=== PATIENT | female | born 1985 | race Caucasian/White ===

== ENCOUNTER 2022-03-20 16:58 | Emergency (ER) | payer OTHER ==
[2022-03-20 18:23] VITALS: TEMP 98.1
--- NOTE | 2022-03-20 19:17 | ED ---
Abdominal Pain HPI - General Source: patient, family, RN notes reviewed Mode of arrival: ambulatory Limitations: no limitations <Fabiana Husain - Last Filed: 03/20/22 19:16> - General Source: patient, RN notes reviewed <Robert Asher - Last Filed: 03/21/22 02:02> - General Chief Complaint: Abdominal Pain Stated Complaint: stomach pain Time Seen by Provider: 03/20/22 19:16 - History of Present Illness Initial Comments: Patient is a 37-year-old female presenting with chief complaint of abdominal pain. Patient states that pain came on suddenly at about 345 this afternoon. It is sharp in nature and located in the right upper quadrant. Patient has had attacks like this before. She admits to nausea with no vomiting. She states that she ate around 3:00 this afternoon. The pain radiates to her back. No fever or chills. No dysuria, hematuria, urgency, frequency. (Fabiana Husain) Patient is a 37-year-old female with past medical history remarkable for chronic abdominal pain, Factor V leiden who presents emergency Department complaining of acute on chronic abdominal pain. Was evaluated in the triage and workup was started. States it started this afternoon suddenly. It has been more frequent lately. Has been dealing with it for multiple weeks. Has been taking aspirin daily for her factor V bleeding for the last 8 years. He is due to follow-up with her doctor on Saturday, however states she does not believe she can make it to her PCP appointment. Has not seen a GI specialist. Has a history of back appendectomy but still has her gallbladder. Was seen recently at another ER and workup was unremarkable. Was discharged home on Pepcid. Presents today as the symptoms returned. Describes a sharp, achy sensation that somewhat radiates to her back is mostly present in the right upper quadrant and epigastric region. Seems to occur after eating. Has no other acute complaints at this time. D enies chest pain, shortness breath, fevers, chills, urinary complaints, . I evaluated the patient when she was placed in a room.Patient states that the pain in her abdomen did radiate up into her chest at one point today. Currently is asymptomatic at this time. No cardiac history. (Robert Asher) - Related Data Previous Rx's Medication Instructions Recorded Ondansetron Odt [Zofran Odt] 4 mg PO Q8HR PRN 3 Days #9 tab 03/21/22 Pantoprazole Sodium [Protonix] 20 mg PO DAILY 14 Days #14 tab 03/21/22 Allergies Allergy/AdvReac Type Severity Reaction Status Date / Time No Known Allergies Allergy Verified 03/20/22 18:23 Review of Systems ROS Other: All systems not noted in ROS Statement are negative. <Fabiana Husain - Last Filed: 03/20/22 19:16> ROS Other: All systems not noted in ROS Statement are negative. <Robert Asher - Last Filed: 03/21/22 02:02> ROS Statement: Those systems with pertinent positive or pertinent negative responses have been documented in the HPI. Review of Systems: CONST: Denies fever EYES: Denies blurry vision ENT: Denies nasal congestion C/V: Denies Chest pain RESP: Denies shortness of breath GI: Endorses abdominal pain : Denies dysuria SKIN: Denies rash. MSK: Denies joint pain. NEURO: Denies headache (Robert Asher) Past Medical History Additional Past Medical History / Comment(s): Factor 5 gene, Past Surgical History: Adenoidectomy, Appendectomy, Tonsillectomy Additional Past Surgical History / Comment(s): [place] teeth removed Past Psychological History: Anxiety, Depression Smoking Status: Former smoker Past Alcohol Use History: None Reported Past Drug Use History: Marijuana <Fabiana Husain - Last Filed: 03/20/22 19:16> General Exam Limitations: no limitations <Fabiana Husain - Last Filed: 03/20/22 19:16> <Robert Asher - Last Filed: 03/21/22 02:02> - General Exam Comments Initial Comments: General: Appears in no acute distress. HEAD: Normal with no signs of head trauma. EYES: PERRLA, EOMI, conjunctiva normal, no discharge. ENT: Hearing grossly intact, normal oropharynx. RESPIRATORY: Clear breath sounds bilaterally. No wheezes, rales, or rhonchi. C/V: Regular rate and rhythm. S1 and S2 auscultated, no edema, peripheral pulses 2+ and intact throughout ABD: Abdomen soft, nondistended. Tender to palpation in the right upper quadrant region very minimally at this time. No guarding. No peritoneal signs. No rebound tenderness. EXT: Normal range of motion, no obvious deformity SKIN: No rashes or lesions observed on exposed skin. NEURO: Alert and oriented 4. (Robert Asher) Course Vital Signs 03/20/22 18:19 Temperature 98.1 F Pulse Rate 79 Respiratory 18 Rate Blood Pressure 119/79 O2 Sat by Pulse 96 Oximetry Medical Decision Making - Lab Data Result diagrams: 03/20/22 21:00 03/20/22 21:00 - EKG Data -: EKG Interpreted by Me <Robert Asher - Last Filed: 03/21/22 02:02> - Medical Decision Making Based on the patient's presentation and physical exam, there was concern for intra-abdominal process for current symptoms. Workup was already starting in triage which consisted of abdominal laboratory studies, EKG. right upper quadrant ultrasound was also performed. I obtain a urinalysis as well as a quantitative beta hCG. Vital signs within except for limits. She'll be given Toradol as well as IV fluids for pain control. She'll be given antibiotics. She was in agreement this plan. Right upper quadrant ultrasound has already returned, and was remarkable for no reviewed gallbladder. No dilated ducts. CBD is normal size. Laboratory studies are remarkable for a slight leukocytosis of 13 which is likely reactive. Patient is a slightly elevated AST and ALT. Alk phos is also slightly elevated. I discussed with the patient obtaining CT imaging which she was in agreement with. There was a long delay in obtaining CT abdomen and pelvis secondary to large volumes of the emergency department and higher acuity cases requiring the CT scanner. When it finally returned, gallbladder was not seen and there is no other obvious etiology for her right upper quadrant pain. After the patient. I believe it is safer to be discharged home. She was in agreement this plan. We discussed that she may be having some gallbladder pathology versus possible ulcers. She takes an aspirin every day and I recommended she take it with food or drink. She'll be discharged home with prescription for Protonix as well as Zofran. Patient was in agreement this plan. We discussed she likely requires an EGD in the future. She follows up with her PCP on Saturday. I will provide the patient with a prescription for ODT Zofran, Protonix. I instructed the patient to follow up with their PCP in the next 1-3 days. I explained that the patient should return to the emergency department if they experience any worsening symptoms. Strict return precautions were discussed with the patient. The patient expressed understanding of these instructions. I answered all questions that the patient had. The patient was discharged home in good condition with their prescriptions and follow up information. Was pt. sent in by a medical professional or institution ([facility] Ewing, PRISON LIBRARIAN, urgent care, hospital, or long-term...) When possible be specific @ -No Did you speak to anyone other than the patient for history (EMS, parent, family, police, friend...)? What history was obtained from this source @ -No Did you review nursing and triage notes (agree or disagree)? Why? @ -I reviewed and agree with nursing and triage notes Were old charts reviewed (outside hosp., previous admission, EMS record, old EKG, old radiological studies, urgent care reports/EKG's, long-term records)? Report findings @ -No old charts were reviewed Differential Diagnosis (chest pain, altered mental status, abdominal pain women, abdominal pain men, vaginal bleeding, weakness, fever, dyspnea, syncope, headache, dizziness, GI bleed, back pain, seizure, CVA, palpatations, mental health)? @ -Differential Abdominal Pain Women: Appendicitis, Cholecystitis, diverticulosis, ischemic bowel, pancreatitis, hepatitis, UTI, gastroenteritis, AAA, incarcerated hernia, bowel obstruction, constipation, inflammatory bowel, hepatitis, peptic ulcer disease, splenic infarction, perforated viscus, vulvitis, ovarian torsion, PID, kidney stone, placenta abruption, this is not meant to be an all-inclusive list EKG interpreted by me (3pts min.). @ -As above X-rays interpreted by me (1pt min.). @ -None done CT interpreted by me (1pt min.). @ -No obvious cause of right upper quadrant pain on CT abdomen and pelvis with contrast. No evidence of cholecystitis. U/S interpreted by me (1pt. min.). @ -No obvious gallbladder seen on ultrasound of the abdomen. What testing was considered but not performed or refused? (CT, X-rays, U/S, labs)? Why? @ -None What meds were considered but not given or refused? Why? @ -None Did you discuss the management of the patient with other professionals (professionals i.e. , MARISSA, PRISON LIBRARIAN, lab, RT, psych nurse, social worker masters, platen press operator, teacher, community chest officer, outpatient case manager)? Give summary @ -No Was smoking cessation discussed for >3mins.? @ -No Was critical care preformed (if so, how long)? @ -No Were there social determinants of health that impacted care today? How? (Homelessness, low income, unemployed, alcoholism, drug addiction, transportation, low edu. Level, literacy, decrease access to med. care, usp, rehab)? @ -No Was there de-escalation of care discussed even if they declined (Discuss DNR or withdrawal of care, Hospice)? DNR status @ -No What co-morbidities impacted this encounter? (DM, HTN, Smoking, COPD, CAD, Cancer, CVA, ARF, Chemo, Hep., AIDS, mental health diagnosis, sleep apnea, morbid obesity)? @ -None Was patient admitted / discharged? Hospital course, mention meds given and route, prescriptions, significant lab abnormalities, going to OR and other pertinent info. @ -Discharged home. See above for ED course. Undiagnosed new problem with uncertain prognosis? @ -No Drug Therapy requiring intensive monitoring for toxicity (Heparin, Nitro, In sulin, Cardizem)? @ -No Were any procedures done? @ -No Diagnosis/symptom? @ -Abdominal pain of unknown etiology Acute, or Chronic, or Acute on Chronic? @ -Acute on chronic Uncomplicated (without systemic symptoms) or Complicated (systemic symptoms)? @ -Uncomplicated Side effects of treatment? @ -No Exacerbation, Progression, or Severe Exacerbation? @ -No Poses a threat to life or bodily function? How? (Chest pain, [place], [place], pneumonia, PE, COPD, DKA, ARF, appy, cholecystitis, CVA, Diverticulitis, Homicidal, Suicidal, threat to staff... and all critical care pts) @ -No (Robert Asher) - Lab Data Lab Results 03/20/22 03/20/22 03/20/22 Range/Units 21:00 21:00 21:00 WBC 13.0 H (3.8-10.6) k/uL RBC 5.46 H (3.80-5.40) m/uL Hgb 13.8 (11.4-16.0) gm/dL Hct 43.5 (34.0-46.0) % MCV 79.7 L (80.0-100.0) fL MCH 25.3 (25.0-35.0) pg MCHC 31.8 (31.0-37.0) g/dL RDW 13.8 (11.5-15.5) % Plt Count 309 (150-450) k/uL MPV 8.6 Neutrophils % 65 % Lymphocytes % 25 % Monocytes % 4 % Eosinophils % 5 % Basophils % 0 % Neutrophils # 8.4 H (1.3-7.7) k/uL Lymphocytes # 3.2 (1.0-4.8) k/uL Monocytes # 0.5 (0-1.0) k/uL Eosinophils # 0.6 (0-0.7) k/uL Basophils # 0.1 (0-0.2) k/uL PT 10.1 (9.0-12.0) sec INR 0.9 (<1.2) APTT 22.3 (22.0-30.0) sec Sodium 139 (137-145) mmol/L Potassium 4.6 (3.5-5.1) mmol/L Chloride 107 (98-107) mmol/L Carbon Dioxide 24 (22-30) mmol/L Anion Gap 8 mmol/L BUN 18 H (7-17) mg/dL Creatinine 0.64 (0.52-1.04) mg/dL Est GFR (CKD-EPI)AfAm >90 (>60 ml/min/1.73 sqM) Est GFR (CKD-EPI)NonAf >90 (>60 ml/min/1.73 sqM) Glucose 90 (74-99) mg/dL Plasma Lactic Acid Reyes (0.7-2.0) mmol/L Calcium 9.7 (8.4-10.2) mg/dL Total Bilirubin 0.7 (0.2-1.3) mg/dL AST 161 H (14-36) U/L ALT 108 H (4-34) U/L Alkaline Phosphatase 156 H (38-126) U/L Troponin I (0.000-0.034) ng/mL Total Protein 7.1 (6.3-8.2) g/dL Albumin 4.4 (3.5-5.0) g/dL Amylase 51 (30-110) U/L Lipase 100 (23-300) U/L Urine Color Urine Appearance (Clear) Urine pH (5.0-8.0) Ur Specific [place] (1.001-1.035) Urine Protein (Negative) Urine Glucose (UA) (Negative) Urine Ketones (Negative) Urine Blood (Negative) Urine Nitrite (Negative) Urine Bilirubin (Negative) Urine Urobilinogen (<2.0) mg/dL Ur Leukocyte Esterase (Negative) Urine HCG, Qual (Not Detectd) 03/20/22 03/20/22 03/20/22 Range/Units 21:00 21:00 22:50 WBC (3.8-10.6) k/uL RBC (3.80-5.40) m/uL Hgb (11.4-16.0) gm/dL Hct (34.0-46.0) % MCV (80.0-100.0) fL MCH (25.0-35.0) pg MCHC (31.0-37.0) g/dL RDW (11.5-15.5) % Plt Count (150-450) k/uL MPV Neutrophils % % Lymphocytes % % Monocytes % % Eosinophils % % Basophils % % Neutrophils # (1.3-7.7) k/uL Lymphocytes # (1.0-4.8) k/uL Monocytes # (0-1.0) k/uL Eosinophils # (0-0.7) k/uL Basophils # (0-0.2) k/uL PT (9.0-12.0) sec INR (<1.2) APTT (22.0-30.0) sec Sodium (137-145) mmol/L Potassium (3.5-5.1) mmol/L Chloride (98-107) mmol/L Carbon Dioxide (22-30) mmol/L Anion Gap mmol/L BUN (7-17) mg/dL Creatinine (0.52-1.04) mg/dL Est GFR (CKD-EPI)AfAm (>60 ml/min/1.73 sqM) Est GFR (CKD-EPI)NonAf (>60 ml/min/1.73 sqM) Glucose (74-99) mg/dL Plasma Lactic Acid Reyes 0.7 (0.7-2.0) mmol/L Calcium (8.4-10.2) mg/dL Total Bilirubin (0.2-1.3) mg/dL AST (14-36) U/L ALT (4-34) U/L Alkaline Phosphatase (38-126) U/L Troponin I <0.012 (0.000-0.034) ng/mL Total Protein (6.3-8.2) g/dL Albumin (3.5-5.0) g/dL Amylase (30-110) U/L Lipase (23-300) U/L Urine Color Yellow Urine Appearance Clear (Clear) Urine pH 6.0 (5.0-8.0) Ur Specific [place] 1.028 (1.001-1.035) Urine Protein Trace H (Negative) Urine Glucose (UA) Negative (Negative) Urine Ketones Negative (Negative) Urine Blood Negative (Negative) Urine Nitrite Negative (Negative) Urine Bilirubin Negative (Negative) Urine Urobilinogen 2.0 (<2.0) mg/dL Ur Leukocyte Esterase Negative (Negative) Urine HCG, Qual (Not Detectd) 03/20/22 Range/Units 22:50 WBC (3.8-10.6) k/uL RBC (3.80-5.40) m/uL Hgb (11.4-16.0) gm/dL Hct (34.0-46.0) % MCV (80.0-100.0) fL MCH (25.0-35.0) pg MCHC (31.0-37.0) g/dL RDW (11.5-15.5) % Plt Count (150-450) k/uL MPV Neutrophils % % Lymphocytes % % Monocytes % % Eosinophils % % Basophils % % Neutrophils # (1.3-7.7) k/uL Lymphocytes # (1.0-4.8) k/uL Monocytes # (0-1.0) k/uL Eosinophils # (0-0.7) k/uL Basophils # (0-0.2) k/uL PT (9.0-12.0) sec INR (<1.2) APTT (22.0-30.0) sec Sodium (137-145) mmol/L Potassium (3.5-5.1) mmol/L Chloride (98-107) mmol/L Carbon Dioxide (22-30) mmol/L Anion Gap mmol/L BUN (7-17) mg/dL Creatinine (0.52-1.04) mg/dL Est GFR (CKD-EPI)AfAm (>60 ml/min/1.73 sqM) Est GFR (CKD-EPI)NonAf (>60 ml/min/1.73 sqM) Glucose (74-99) mg/dL Plasma Lactic Acid Reyes (0.7-2.0) mmol/L Calcium (8.4-10.2) mg/dL Total Bilirubin (0.2-1.3) mg/dL AST (14-36) U/L ALT (4-34) U/L Alkaline Phosphatase (38-126) U/L Troponin I (0.000-0.034) ng/mL Total Protein (6.3-8.2) g/dL Albumin (3.5-5.0) g/dL Amylase (30-110) U/L Lipase (23-300) U/L Urine Color Urine Appearance (Clear) Urine pH (5.0-8.0) Ur Specific [place] (1.001-1.035) Urine Protein (Negative) Urine Glucose (UA) (Negative) Urine Ketones (Negative) Urine Blood (Negative) Urine Nitrite (Negative) Urine Bilirubin (Negative) Urine Urobilinogen (<2.0) mg/dL Ur Leukocyte Esterase (Negative) Urine HCG, Qual Not Detected (Not Detectd) - EKG Data EKG Comments: 12-lead Electrocardiogram Interpretation Note EKG was reviewed and interpreted by myself. 12-lead ECG performed at 2046 is interpreted by me as revealing normal sinus rhythm at a rate of 73 beats per minute. [place] is normal. ME interval is 149 ms, QRS duration is 99 ms, QTc is 411 ms.. There were no ST or T wave abnormalities to suggest myocardial ischemia or injury. R wave progression across the precordium was satisfactory. By my interpretation this EKG is non-diagnostic for acute ischemia. No prior EKG for comparison. (Robert Asher) Disposition <Fabiana Husain - Last Filed: 03/20/22 19:16> Is patient prescribed a controlled substance at d/c from ED?: No Time of Disposition: 01:20 <Robert Asher - Last Filed: 03/21/22 02:02> Clinical Impression: Abdominal pain of unknown etiology Disposition: HOME SELF-CARE Condition: Good Instructions (If sedation given, give patient instructions): Abdominal Pain (ED) Prescriptions: Pantoprazole Sodium [Protonix] 20 mg PO DAILY 14 Days #14 tab Ondansetron Odt [Zofran Odt] 4 mg PO Q8HR PRN 3 Days #9 tab PRN Reason: Nausea Referrals: None,Stated [Primary Care Provider] - 1-2 days
--- NOTE | 2022-03-20 19:52 | US ---
EXAMINATION TYPE: US abdomen limited DATE OF EXAM: 03/20/2022 COMPARISON: NONE CLINICAL HISTORY: RUQ pain. RUQ pain x months. Pt states she had a CT at another facility and her "GB wasn't seen because it was contracted." TECHNIQUE: Multiple sonographic images of the right upper quadrant are obtained. FINDINGS: EXAM MEASUREMENTS: Liver Length: 19.2 cm Gallbladder Wall: Not seen CBD: 0.44 cm Right Kidney: 12.1 x 4.6 x 5.0 cm WIND ENERGY TECHNICIAN NOTES: Pancreas: wnl Liver: wnl Gallbladder: Not visualized Evidence for sonographic Li's sign: No CBD: wnl Right Kidney: wnl GB not visualized in exam, pt states last time she ate was 4 hours ago. IMPRESSION: Gallbladder not seen. No focal liver defect. No dilated ducts. No evidence of pancreatic mass.
[2022-03-20 21:27] LABS: Basophils # (A) 0.1 k/uL (0-0.2); Basophils % (A) 0 %; Eosinophils # (A) 0.6 k/uL (0-0.7); Eosinophils % (A) 5 %; HCT 43.5 % (34.0-46.0); HGB 13.8 gm/dL (11.4-16.0); Lymphocytes # (A) 3.2 k/uL (1.0-4.8); Lymphocytes % (A) 25 %; MCH 25.3 pg (25.0-35.0); MCHC 31.8 g/dL (31.0-37.0); MCV 79.7 fL (80.0-100.0); Mean Platelet Volume 8.6; Monocytes # (A) 0.5 k/uL (0-1.0); Monocytes % (A) 4 %; Neutrophils # (A) 8.4 k/uL (1.3-7.7); Neutrophils % (A) 65 %; Platelet Count 309 k/uL (150-450); RBC 5.46 m/uL (3.80-5.40); RDW 13.8 % (11.5-15.5)
[2022-03-20 21:48] LABS: INR 0.9 (<1.2); Partial Thromboplastin Time 22.3 sec (22.0-30.0); Prothrombin Time 10.1 sec (9.0-12.0)
[2022-03-20 21:50] LABS: ALT 108 U/L (4-34); AST 161 U/L (14-36); African American GFR (CKD) >90 (>60 ml/min/1.73 sqM); Albumin 4.4 g/dL (3.5-5.0); Alkaline Phosphatase 156 U/L (38-126); Amylase 51 U/L (30-110); Anion Gap 8 mmol/L; Blood Urea Nitrogen 18 mg/dL (7-17); Calcium 9.7 mg/dL (8.4-10.2); Carbon Dioxide 24 mmol/L (22-30); Chloride 107 mmol/L (98-107); Glucose 90 mg/dL (74-99); Lipase 100 U/L (23-300); Non-African American GFR(CKD) >90 (>60 ml/min/1.73 sqM); Sodium 139 mmol/L (137-145); Total Bilirubin 0.7 mg/dL (0.2-1.3); Total Protein 7.1 g/dL (6.3-8.2)
[2022-03-20 21:55] LABS: Potassium 4.6 mmol/L (3.5-5.1)
[2022-03-20] MEDS ORDERED: ONDANSETRON 4 MG/2 ML VIAL IVP STA (22:25)
[2022-03-20] MEDS ORDERED: SODIUM CHLORIDE 0.9% 1,000 ML IV STA (22:25)
[2022-03-20] MEDS ORDERED: KETOROLAC 15 MG/ML 1 ML VIAL IVP STA (22:25)
[2022-03-20 23:12] LABS: Appearance,Urine Clear (Clear); Bilirubin,Urine Negative (Negative); Blood,Urine Negative (Negative); Color,Urine Yellow; Glucose,Urine (UA) Negative (Negative); Ketones,Urine Negative (Negative); Leukocyte Esterase,Urine Negative (Negative); Nitrite,Urine Negative (Negative); Protein,Urine Trace (Negative); Specific Gravity,Urine 1.028 (1.001-1.035)
--- NOTE | 2022-03-21 01:03 | CT ---
EXAMINATION TYPE: CT abdomen pelvis w con DATE OF EXAM: 03/21/2022 COMPARISON: None HISTORY: RUQ abd pain. CT DLP: 1428.2 mGycm Automated exposure control for dose reduction was used. CONTRAST: Performed with IV Contrast, patient injected with 100cc mL of Isovue 300. Images obtained from the diaphragm to the floor of the pelvis with the IV contrast. Lung bases are clear. No pleural effusion. Heart size is normal. No pericardial effusion. Liver splee n and stomach pancreas appear intact. The bile duct are not dilated. Gallbladder not seen. There is no adrenal mass. Kidneys show satisfactory contrast opacification. No hydronephrosis. Ureter s are not dilated. No retroperitoneal adenopathy. No inguinal hernia. Bladder distends smoothly. No p elvic mass. There is small fat-containing umbilical hernia. No mesenteric edema. No ascites or free air. No sign of bowel obstruction. There is small amount of low-density free fluid in the pelvis. There is no mesenteric edema. No ascites or free air. No sign of a bowel obstruction. Delayed images show normal renal excretion. Appendix not clearly seen. No sign of thickened appendix. The lumbar vertebrae have normal alignment. Posterior elements are intact. No compression fracture. T he bony pelvis is intact. The hip joints are intact. Uterus is retroverted. IMPRESSION: There is small amount of low density fluid in the pelvis that could be physiologic. Appendix not seen . No sign of thickened appendix. I do not see a cause for right upper quadrant pain.
[2022-03-21] MEDS ORDERED: KETOROLAC 15 MG/ML 1 ML VIAL IVP STA (01:36)
[2022-03-21 02:21] VITALS: BP 129/68; PULSE 74; RESP 15
== END 2022-03-21 02:23 | disposition home or self-care (01) ==
LOC: EC 16:58
DX: R10.11 Right upper quadrant pain (principal); F41.9 Anxiety disorder, unspecified; F32.A Depression, unspecified; Z87.891 Personal history of nicotine dependence; F12.90 Cannabis use, unspecified, uncomplicated
CPT/HCPCS: 36415; 93005; 80053; 82150; 83605; 83690; 84484; 85025; 85610; 85730; 81003; 81025; 76705; 99284; 96374; 96375; 96361; 96376; J2405; J1885; 74177

== ENCOUNTER → 2022-03-30 | Outpatient (CLI) | payer OTHER ==
[2022-03-30 18:51] LABS: Basophils # (A) 0.06 X 10*3/uL (0.00-0.10); Basophils % (A) 0.7 %; Eosinophils # (A) 0.98 X 10*3/uL (0.04-0.35); Eosinophils % (A) 11.2 %; HCT 43.5 % (37.2-46.3); HGB 13.1 g/dL (12.0-15.0); Immature Grans, Automated 0.2 %; Lymphocytes # (A) 3.27 X 10*3/uL (0.90-5.00); Lymphocytes % (A) 37.2 %; MCH 25.2 pg (27.0-32.0); MCHC 30.1 g/dL (32.0-37.0); MCV 83.7 fL (80.0-97.0); Mean Platelet Volume 12.1 fL (9.5-12.2); Monocytes # (A) 0.48 X 10*3/uL (0.20-1.00); Monocytes % (A) 5.5 %; NRBC Per 100 WBC 0 /100 WBCS (0.0-0.0); Neutrophils # (A) 3.97 X 10*3/uL (1.80-7.70); Neutrophils % (A) 45.2 %; Platelet Count 344 X 10*3/uL (140-440); RDW 14.3 % (11.5-14.5); WBC 8.78 X 10*3/uL (4.50-10.00)
[2022-03-30 19:03] LABS: ALT 35 U/L (8-44); AST 22 U/L (13-35); African American GFR (CKD) 130.1 (60.0-200.0); Albumin 4.4 g/dL (3.8-4.9); Alkaline Phosphatase 116 U/L (41-126); BUN/Creat Ratio 18.57 Ratio (12.00-20.00); Bilirubin, Conjugated <0.20 mg/dL (0.20-0.40); Calcium 9.5 mg/dL (8.7-10.3); Carbon Dioxide 24.5 mmol/L (20.0-27.5); Chloride 105 mmol/L (96-109); Chol/HDL Ratio 4.73 Ratio; Glucose 85 mg/dL (70-110); LDL Cholesterol,Calculated 103.6 mg/dL (0.0-131.0); Non-African American GFR(CKD) 112.3 (60.0-200.0); Potassium 4.4 mmol/L (3.5-5.5); Sodium 141 mmol/L (135-145); Total Protein 6.4 g/dL (6.2-8.2); VLDL Calculation 14.68 mg/dL (5.00-40.00)
== END | disposition home or self-care (01) ==
LOC: LABWHC1 12:04
PROVIDERS: ATTEND Internal Medicine
DX: R10.811 Right upper quadrant abdominal tenderness (principal)
CPT/HCPCS: 36415; 80053; 80061; 82248; 84443; 85025

== ENCOUNTER → 2022-06-29 | Day surgery (SDC) | payer OTHER ==
[2022-06-26 17:30] VITALS: BMI 34.5
[~2022-06-29] MED LIST: ACETAMINOPHEN TAB 500 MG TAB PO STA; BUPIVACAIN-EPI 0.25%-1:200,000 30 ML VIAL SQ ONE; DEXAMETHASONE SOD PHOSPHATE 4 MG/ML 1 ML VIAL IV ONE; GABAPENTIN 300 MG CAP PO STA; GLYCOPYRROLATE 0.2 MG/ML 2 ML VIAL ONE; HEPARIN SODIUM,PORCINE/PF 5,000 UNIT/0.5 ML SYRINGE SQ PRN; HYDROcodone/APAP 7.5-325MG 1 EACH TAB ONE; HYDROcodone/APAP 7.5-325MG 1 EACH TAB PO ONE; INDOCYANINE GREEN 25 MG VIAL IV STA; LACTATED RINGERS 1,000 ML IV ONE; LACTATED RINGERS 1,000 ML IV SCH; LIDOCAINE 2% INJ 20 MG/ML (2 ML VIAL) ONE; MELOXICAM 7.5 MG TAB PO SCH; MIDAZOLAM 2 MG/2 ML VIAL IV PRN; MIDAZOLAM 2 MG/2 ML VIAL ONE; NEOSTIGMINE 1 MG/ML 10 ML VIAL ONE; ONDANSETRON 4 MG/2 ML VIAL IVP ONE; PROPOFOL 10 MG/ML 20 ML VIAL IV ONE; ROCURONIUM 10 MG/ML (5 ML VIAL) IV ONE; SCOPOLAMINE 1 MG/72 HR PATCH TRANSDERM ONE; SUCCINYLCHOLINE CHLORIDE 200 MG/10 ML VIAL IV ONE; fentaNYL (PF) 50 MCG/ML 2 ML AMP ONE
--- NOTE | 2022-06-29 07:45 | P.GSHP ---
History of Present Illness H&P Date: 06/29/22 CHIEF COMPLAINT: Cholecystitis HISTORY OF PRESENT ILLNESS: The patient is a 37-year-old female who presents with history of epigastric including right upper quadrant abdominal pain. She underwent diagnostic studies for her gallbladder. Separately her clinical picture was consistent with cholecystitis. Now she presents for surgical intervention. PAST MEDICAL HISTORY: Please see list PAST SURGICAL HISTORY: Please see list MEDICATIONS: Please see list ALLERGIES: Please see list SOCIAL HISTORY: Please see list FAMILY HISTORY: Please see list REVIEW OF ORGAN SYSTEMS: CONSTITUTIONAL: No reports of fevers or chills. HEENT: Denies any troubles with the vision or hearing. ENDOCRINE: No reports of hypothyroidism. No diabetes. RESPIRATORY: No recent pneumonias. CARDIOVASCULAR: Denies chest pain or palpitations GI: No blood in stools or constipation. MUSCULOSKELETAL: Has occasional joint pain including back pain. NEURO: No seizure disorders or headaches. No recent stroke. PSYCH: No depression or suicidal ideation. GENITOURINARY: No active blood in urine. No urinary hesitancy. HEMATOLOGIC: No personal or family history of DVTs or pulmonary emboli. SKIN: No skin cancer. PHYSICAL EXAM: VITAL SIGNS: Afebrile vital signs stable GENERAL: Well-developed pleasant in no acute distress. HEENT: No scleral icterus. Extraocular movements grossly intact. Moist buccal mucosa. NECK: Supple without lymphadenopathy. CHEST: Unlabored respirations. Equal bilateral excursions. CARDIOVASCULAR: Regular rate regular rhythm rhythm. Distal 2+ pulses. ABDOMEN: Soft, nondistended. Tender along the epigastrium and right upper quadrant. MUSCULOSKELETAL: No clubbing, cyanosis, or edema. NEURO: Cranial nerves II to XII within normal limits. No focal or lateralizing signs. PSYCH: Alert and oriented to person, place and time. SKIN: Well-perfused good skin turgor. ASSESSMENT: 1. Epigastric and right upper quadrant abdominal pain 2. Chronic cholecystitis 3. Symptomatic gallstones. PLAN: 1. Will need a robotic cholecystectomy possible open. Benefits and risks were described. 2. Heparin for DVT prophylaxis 5000 units. 3. Antibiotic prophylaxis. 4. CBC and CMP on day of procedure 5. Non-narcotic pre and post op pain management reviewed. 6. Indocyanine green for biliary imaging. Past Medical History Past Medical History: Blood Disorder Additional Past Medical History / Comment(s): FACTOR V LEIDEN History of Any Multi-Drug Resistant Organisms: None Reported Past Surgical History: Adenoidectomy, Appendectomy, Tonsillectomy Additional Past Surgical History / Comment(s): [place] teeth removed Past Anesthesia/Blood Transfusion Reactions: No Reported Reaction Past Psychological History: Anxiety, Depression Smoking Status: Former smoker, Vaper Past Alcohol Use History: None Reported Past Drug Use History: Marijuana - Past Family History Mother Family Medical History: No Reported History Medications and Allergies Home Medications Medication Instructions Recorded Confirmed Type No Known Home Medications 06/26/22 06/26/22 History Allergies Allergy/AdvReac Type Severity Reaction Status Date / Time No Known Allergies Allergy Verified 06/26/22 17:25
[2022-06-29 10:26] VITALS: TEMP 97.2
[2022-06-29 10:44] LABS: HCT 40.8 % (34.0-46.0); HGB 13.2 gm/dL (11.4-16.0); MCH 26.5 pg (25.0-35.0); MCHC 32.3 g/dL (31.0-37.0); MCV 81.9 fL (80.0-100.0); Mean Platelet Volume 8.5; Platelet Count 281 k/uL (150-450); RBC 4.98 m/uL (3.80-5.40); RDW 13.7 % (11.5-15.5); WBC 7.5 k/uL (3.8-10.6)
[2022-06-29 10:56] LABS: ALT 20 U/L (4-34); AST 26 U/L (14-36); African American GFR (CKD) >90 (>60 ml/min/1.73 sqM); Albumin 3.7 g/dL (3.5-5.0); Alkaline Phosphatase 79 U/L (38-126); Anion Gap 10 mmol/L; Blood Urea Nitrogen 15 mg/dL (7-17); Calcium 8.9 mg/dL (8.4-10.2); Carbon Dioxide 21 mmol/L (22-30); Chloride 107 mmol/L (98-107); Glucose 84 mg/dL (74-99); Non-African American GFR(CKD) >90 (>60 ml/min/1.73 sqM); Potassium 4.3 mmol/L (3.5-5.1); Sodium 138 mmol/L (137-145); Total Bilirubin 0.6 mg/dL (0.2-1.3); Total Protein 6.1 g/dL (6.3-8.2)
[2022-06-29] MEDS: HYDROmorphone 0.5 MG/0.5 ML SYRINGE IVP PRN ×2 (14:34→14:42)
[2022-06-29 14:49] VITALS: RESP 16
--- NOTE | 2022-06-29 15:27 | P.OP ---
Date of Procedure: 06/29/22 Description of Procedure: SURGEON: HAYLIE MILLER MD PREOPERATIVE DIAGNOSES: 1. Right upper quadrant abdominal pain 2. Abnormal computed tomography scan, HIDA scan, ultrasound for cholecystitis POSTOPERATIVE DIAGNOSES: 1. Gallbladder agenesis 2. Peritoneal adhesions 3. Fatty liver disease OPERATION: 1. Robotic-assisted da Dimple Xi laparoscopic with lysis of adhesions ESTIMATED BLOOD LOSS: 5 mL. SPECIMENS REMOVED: None. COMPLICATIONS: None. OPERATIVE FINDINGS: 1. Moderate adhesions along hepatic fossa lysed demonstrating gallbladder agenesis INDICATIONS: The patient is a 37-year-old female who presents with right upper quadrant abdominal pain and abnormal studies for cholecystitis. Surgical intervention with diagnostic laparoscopy, lysis of adhesions and possible left inguinal hernia repair were described. Informed consent was obtained. Robotic assisted laparoscopic approach was described. Benefits and risks of the procedure including but not limited to bleeding, infection was described. Informed consent was obtained. DESCRIPTION OF PROCEDURE: Patient was brought to the operating room, placed in supine position. After general induction, the abdomen had been prepped and draped in standard sterile fashion. The robotic da Dimple XI system was primed. After a timeout protocol was performed, the patient had been prepped and draped in standard sterile fashion. The robot was docked along the left lateral abdomen. Please note prior to dockin g of the robot; however, a 5 mm 0 degrees laparoscopic trocar entry was performed along the left upper quadrant. Next, three 8 mm robotic ports were placed along the left lateral abdominal wall abdomen. Trochars were placed at least 10 to 15 cm away from the target anatomy. Instruments including graspers and scissors with cautery were interchanged by the ophthalmic assistant. I had sat at the console. Greater omental adhesion to the lower abdominal wall at the pelvis was identified and sharply divided using Endo scissors with cautery. Hemostasis was checked. The sigmoid colon was highly redundant. No large or small bowel obstruction was identified. The robot was undocked. All pneumoperitoneum and instruments were evacuated from the abdominal cavity. The incisions were reapproximated using 4-0 Monocryl in an interrupted subcuticular fashion. Please note along the trocar sites, local anesthetic was placed as a field block prior to insertion of all instruments. Exofin was applied to the skin. At the end of the procedure needle, sponge, and instrument count had been verified correct by the assembler surgical garment. The patient was transferred to postanesthesia care unit in stable condition. Plan - Discharge Summary Discharge Rx Participant: No New Discharge Prescriptions: New Ibuprofen [Motrin] 600 mg PO Q8HR PRN #30 tab PRN Reason: Pain Simethicone 40 mg/0.6 ml Drops [Mylicon Drops] 40 mg PO Q6HR PRN #30 ml PRN Reason: Abdominal Distention Acetaminophen Tab [Tylenol Tab] 1,000 mg PO Q6HR PRN #30 tablet PRN Reason: Pain Discharge Medication List Acetaminophen Tab [Tylenol Tab] 1,000 mg PO Q6HR PRN #30 tablet 06/29/22 [Rx] Ibuprofen [Motrin] 600 mg PO Q8HR PRN #30 tab 06/29/22 [Rx] Simethicone 40 mg/0.6 ml Drops [Mylicon Drops] 40 mg PO Q6HR PRN #30 ml 06/29/22 [Rx] Follow up Appointment(s)/Referral(s): Haylie Miller MD [STAFF PHYSICIAN] - 07/03/22 ([facility]) Patient Instructions/Handouts: *[facility] - Scopalamine Patch Instructions, *[facility] - Managing Your Pain After Surgery Without Opioids, Lysis of Abdominal Adhesions (GEN) Activity/Diet/Wound Care/Special Instructions: DR UYEN CALLS YOU AT HOME No lifting over 20 pounds in 2 weeks until July 13July shower. No bath tub soaks for two weeks, July 13 Diet as tolerated. Use Tylenol, simethicone and ibuprofen or Aleve scheduled for the next 24-48 hours for best pain relief. Use ice along incisions for today to prevent swelling. Discharge Disposition: HOME SELF-CARE
[2022-06-29 16:14] VITALS: BP 128/75; PULSE 45
== END | disposition home or self-care (01) ==
LOC: OR 09:56
PROVIDERS: ATTEND Surgery Plastic and Reconstructive Surgery
DX: K66.0 Peritoneal adhesions (postprocedural) (postinfection) (principal); K81.0 Acute cholecystitis; K76.0 Fatty (change of) liver, not elsewhere classified; F41.8 Other specified anxiety disorders; D68.51 Activated protein C resistance; Z90.89 Acquired absence of other organs; Z90.49 Acquired absence of other specified parts of digestive tract; Z87.891 Personal history of nicotine dependence
CPT/HCPCS: 49329; S2900; 80053; 81025; 85027